=== PATIENT | female | born 1990 | race Hispanic/Latino ===

== ENCOUNTER 2020-01-14 07:02 | Emergency (ER) | payer BC, MEDICAID ==
[2020-01-14] MEDS ORDERED: HALOPERIDOL LACTATE 5 MG/ML VIAL ONE ×2 (07:38)
== END 2020-01-14 09:07 | disposition home or self-care (01) ==
LOC: EDH 07:02
DX: O9A.212 Injury, poisoning and certain other consequences of external causes complicating pregnancy, second trimester (principal); S93.401A Sprain of unspecified ligament of right ankle, initial encounter; R10.30 Lower abdominal pain, unspecified; Z3A.19 19 weeks gestation of pregnancy; W10.8XXA Fall (on) (from) other stairs and steps, initial encounter; Y93.89 Activity, other specified; Y92.89 Other specified places as the place of occurrence of the external cause; Y99.8 Other external cause status
CPT/HCPCS: 73610; 76805; 99284; J1630 ×2

== ENCOUNTER 2020-02-25 02:13 | Observation (INO) | payer BC, MEDICAID ==
[~2020-02-25] VITALS: Ht 149.9 cm; Wt 79.8 kg
[2020-02-25 02:55] VITALS: BP 118/71
[2020-02-25 03:43] LABS: APPEARANCE,URINE Cloudy (CLEAR); BILIRUBIN,URINE Negative (NEGATIVE); COLOR,URINE Yellow (YELLOW); GLUCOSE, URINE (UA) Negative (NEGATIVE); KETONES,URINE 40 mg/dL (NEGATIVE); LEUKOCYTE ESTERASE ,URINE Small (NEGATIVE); NITRATE,URINE Negative (NEGATIVE); OCCULT BLOOD,URINE Negative (NEGATIVE); PH,URINE 5.5 (5.0-8.0); PROTEIN,URINE Trace mg/dL (NEGATIVE); UROBILINOGEN,URINE 0.2 mg/dL (0.2-1.0)
[2020-02-25] MEDS ORDERED: LACTATED RINGERS 1000ML IV PRN (03:45)
[2020-02-25 03:58] LABS: RBC,URINE 0-1 /HPF (0-1)
[2020-02-25 03:59] LABS: BACTERIA,URINE Moderate /HPF (None Seen)
[2020-02-25 04:17] LABS: INR 0.88 (0.85-1.15); PARTIAL THROMBOPLASTIN TIME 24.9 SEC (26.3-35.5); PROTHROMBIN TIME 9.6 SEC (9.6-11.6)
== END 2020-02-25 07:55 | disposition home or self-care (01) ==
LOC: EDH 02:13 → LDH 02:14
PROVIDERS: ADMIT Specialist; ATTEND Specialist
DX: O9A.212 Injury, poisoning and certain other consequences of external causes complicating pregnancy, second trimester (principal); S30.1XXA Contusion of abdominal wall, initial encounter; Z90.49 Acquired absence of other specified parts of digestive tract; Z3A.26 26 weeks gestation of pregnancy; X58.XXXA Exposure to other specified factors, initial encounter; Y93.89 Activity, other specified; Y92.89 Other specified places as the place of occurrence of the external cause
CPT/HCPCS: 36415; 59025; 76819; 81001; 85384; 85610; 85730; 86850; 86900; 86901; 87088; 96360; 96361; 99284; G0378 ×5

== ENCOUNTER 2020-03-21 20:15 | Observation (INO) | payer MEDICAID ==
[~2020-03-21] VITALS: Ht 149.9 cm; Wt 83.9 kg
[2020-03-21] MEDS ORDERED: LACTATED RINGERS 1000ML IV PRN (20:45)
[2020-03-21 21:15] LABS: APPEARANCE,URINE Error (CLEAR); BILIRUBIN,URINE Negative (NEGATIVE); COLOR,URINE Yellow (YELLOW); GLUCOSE, URINE (UA) Negative (NEGATIVE); KETONES,URINE Negative (NEGATIVE); LEUKOCYTE ESTERASE ,URINE Moderate (NEGATIVE); NITRATE,URINE Negative (NEGATIVE); OCCULT BLOOD,URINE Negative (NEGATIVE); PROTEIN,URINE Trace mg/dL (NEGATIVE)
[2020-03-21 21:24] VITALS: BP 108/63
[2020-03-21 21:29] LABS: BACTERIA,URINE Moderate /HPF (None Seen); MUCUS,URINE Few LPF (None Seen); RBC,URINE 0-1 /HPF (0-1); SQUAMOUS EPITHELIAL CELL,UR Few /HPF (0-2)
[2020-03-21 21:49] LABS: AMPHET/METH SCREEN,URINE NEGATIVE (NEGATIVE); BARBITURATE SCREEN, URINE NEGATIVE (NEGATIVE); BENZODIAZEPINES SCREEN,URINE NEGATIVE (NEGATIVE); CANNABINOID SCREEN,URINE NEGATIVE (NEGATIVE); COCAINE SCREEN,URINE NEGATIVE (NEGATIVE); OPIATE SCREEN,URINE NEGATIVE (NEGATIVE); PHENCYCLIDINE SCREEN,URINE NEGATIVE (NEGATIVE)
[2020-03-21] MEDS ORDERED: PREN1TAB29 PO (22:09)
[2020-03-21] MEDS ORDERED: ACET-2743 PO (22:11)
[2020-03-21] MEDS ORDERED: TERBUTALINE SULFATE VIAL 1MG/ML SQ ONE (22:13)
[2020-03-21] MEDS ORDERED: TERBUTALINE SULFATE VIAL 1MG/ML SQ SCH (22:15)
[2020-03-21] MEDS ORDERED: LACTATED RINGERS 1000ML 1,000 ML IV SCH (22:15)
== END 2020-03-22 01:10 | disposition home or self-care (01) ==
LOC: EDH 20:15 → LDH 20:40
PROVIDERS: ADMIT Specialist; ATTEND Specialist
DX: O62.9 Abnormality of forces of labor, unspecified (principal); Z20.828 Contact with and (suspected) exposure to other viral communicable diseases; O26.893 Other specified pregnancy related conditions, third trimester; R50.9 Fever, unspecified; O99.891 Other specified diseases and conditions complicating pregnancy; M79.7 Fibromyalgia; Z90.49 Acquired absence of other specified parts of digestive tract; Z3A.29 29 weeks gestation of pregnancy
CPT/HCPCS: 59025; 80305; 81001; 87088; 87426; 96360; 96361 ×2; 96372; 99284; G0378 ×4; J3105; J7120 ×3; U0003

== ENCOUNTER 2020-05-25 04:31 | Inpatient (IN) | payer MEDICAID ==
[~2020-05-25] VITALS: Ht 149.9 cm; Wt 93.9 kg
[~2020-05-25 04:31] MED LIST: ACET-2743 PO; PREN1TAB29 PO
[2020-05-25] MEDS ORDERED: CEFAZOLIN SODIUM 1 GM VIAL IVP PRN (04:45)
[2020-05-25] MEDS ORDERED: LACTATED RINGERS 1000ML 1,000 ML IV ONE (05:43)
[2020-05-25] MEDS ORDERED: BUTORPHANOL TARTRATE 2 MG/ML ONE (05:44)
[2020-05-25] MEDS ORDERED: TERBUTALINE SULFATE VIAL 1MG/ML SQ ONE (05:44)
[2020-05-25] MEDS ORDERED: LACTATED RINGERS 1000ML 1,000 ML IV SCH (05:45)
[2020-05-25] MEDS ORDERED: TERBUTALINE SULFATE VIAL 1MG/ML SQ SCH (05:45)
[2020-05-25] MEDS ORDERED: BUTORPHANOL TARTRATE 2 MG/ML IVP PRN (05:45)
[2020-05-25 05:47] LABS: HEMATOCRIT 32.6 % (36-48); MEAN CORPUSCULAR HGB CONC 31.3 g/dL (32.0-36.0); MEAN CORPUSCULAR VOLUME 83.2 fL (79-99); RED BLOOD CELL COUNT(AUTO) 3.92 MIL/uL (4.00-5.50); RED CELL DISTRIBUTION WIDTH 15.8 % (11.0-15.5); WHITE BLOOD COUNT (AUTO) 12.6 K/uL (4.8-10.8)
[2020-05-25 07:10] VITALS: BP 116/88
[2020-05-25 07:49] LABS: RAPID PLASMA REAGIN REACTIVE (NONREACTIVE); RAPID PLASMA REAGIN TITER REACTIVE 1:2 (NONREACTIVE)
[2020-05-25] MEDS ORDERED: MORPHINE PF 100MG/10ML AMP IV ONE (08:19)
[2020-05-25] MEDS ORDERED: CEFAZOLIN SODIUM 1 GM VIAL IVP ONE (08:24)
[2020-05-25] MEDS ORDERED: OXYTOCIN 10 UNIT/1ML 10ML VIAL ONE (08:35)
[2020-05-25] MEDS ORDERED: DEXAMETHASONE SOD PHOSPHATE 10MG/ML 1ML VIAL ONE (08:35)
[2020-05-25] MEDS ORDERED: PHENYLEPHRINE HCL 10 MG/ML 1ML VIAL IV ONE (08:35)
[2020-05-25] MEDS ORDERED: MEPERIDINE-PF 75 MG/ML SYG IM PRN (09:15)
[2020-05-25] MEDS ORDERED: OXYTOCIN-LR 20 UNITS/1000 ML 1,000 ML IV PRN (09:15)
[2020-05-25] MEDS ORDERED: 0.9%NACL 10ML VIAL IVP PRN (09:15)
[2020-05-25] MEDS ORDERED: PROMETHAZINE HCL 25 MG/ML 1ML AMPULE IM PRN ×2 (09:15→09:45)
[2020-05-25] MEDS ORDERED: KETOROLAC 30MG VIAL (30MG/ML) IVP PRN (09:45)
[2020-05-25] MEDS ORDERED: RACEPINEPHRINE HCL 2.25% 0.5 ML NEB SOLN NEB PRN (09:45)
[2020-05-25] MEDS ORDERED: MORPHINE 5 MG/ML VIAL (5MG OR GREATER DOSE) IVP PRN (09:45)
[2020-05-25] MEDS ORDERED: ONDANSETRON 4MG INJ IVP PRN (09:45)
[2020-05-25] MEDS ORDERED: NALOXONE HCL 0.4 MG/1 ML ML IVP PRN (09:45)
[2020-05-25] MEDS ORDERED: METOCLOPRAMIDE 10 MG/2 ML VIAL IVP PRN (09:45)
[2020-05-25] MEDS ORDERED: FENTANYL CITRATE PF 50 MCG/1 ML 2ML VIAL IVP PRN (09:45)
[2020-05-25] MEDS ORDERED: MEPERIDINE-PF 25 MG/ML SYG IVP PRN (09:45)
[2020-05-25] MEDS ORDERED: IPRATROPIUM/ALBUTEROL SULFATE 3 ML SOLUTION IH PRN (09:45)
[2020-05-25] MEDS: ACETAMINOPHEN WITH CODEINE 1 TAB TAB PO PRN ×2 (11:23→20:09)
[2020-05-25 12:12] VITALS: BP 123/76
[2020-05-25] MEDS ORDERED: MEPERIDINE-PF 50 MG/ML SYG ONE (13:01)
[2020-05-25] MEDS: DEXTROSE 5 %-0.45 % NACL 1,000 ML IV PRN ×2 (16:04→22:42)
[2020-05-25 16:05] VITALS: BP 112/79
[2020-05-25 20:01] VITALS: BP 102/58
[2020-05-26 00:20] VITALS: BP 113/65
[2020-05-26 03:53] VITALS: BP 95/46
[2020-05-26] MEDS: ACETAMINOPHEN WITH CODEINE 1 TAB TAB PO PRN ×3 (05:58→16:34)
[2020-05-26] MEDS: DEXTROSE 5 %-0.45 % NACL 1,000 ML IV PRN (05:58)
[2020-05-26 06:27] LABS: HEMATOCRIT 24.4 % (36-48); MEAN CORPUSCULAR HEMOGLOBIN 26.7 pg (27.0-33.0); MEAN CORPUSCULAR HGB CONC 31.1 g/dL (32.0-36.0); MEAN CORPUSCULAR VOLUME 85.6 fL (79-99); RED BLOOD CELL COUNT(AUTO) 2.85 MIL/uL (4.00-5.50); RED CELL DISTRIBUTION WIDTH 16.3 % (11.0-15.5); WHITE BLOOD COUNT (AUTO) 15.1 K/uL (4.8-10.8)
[2020-05-26] MEDS ORDERED: ACETAMINOPHEN 500 MG TABLET PO PRN (07:00)
[2020-05-26] MEDS ORDERED: LANOLIN 30GM OINTMENT TP PRN (07:00)
[2020-05-26] MEDS ORDERED: BISACODYL 10 MG SUPP.RECT RC PRN (07:00)
[2020-05-26] MEDS ORDERED: IBUPROFEN 600 MG TABLET ONE (07:00)
[2020-05-26 07:13] LABS: HEPATITIS Bs ANTIGEN SCREEN P Negative (Negative)
[2020-05-26 08:28] VITALS: BP 99/49
[2020-05-26] MEDS: SIMETHICONE 80 MG TAB.CHEW PO PRN ×2 (09:49→21:34)
[2020-05-26] MEDS: DOCUSATE SODIUM 100 MG CAP PO SCH ×2 (09:49→21:33)
[2020-05-26 11:12] VITALS: BP 93/56
[2020-05-26] MEDS: IBUPROFEN 600 MG TABLET PO PRN ×2 (14:05→21:34)
[2020-05-26 16:40] VITALS: BP 108/63
[2020-05-26 19:41] VITALS: BP 103/56
[2020-05-26] MEDS: HYDROCODONE/ACETAMINOPHEN 5/325 MG TAB PO PRN (22:07)
[2020-05-27] VITALS: BP 111/66
[2020-05-27] MEDS: HYDROCODONE/ACETAMINOPHEN 5/325 MG TAB PO PRN (03:40)
[2020-05-27 03:54] VITALS: BP 115/85
[2020-05-27] MEDS: IBUPROFEN 600 MG TABLET PO PRN (04:28)
[2020-05-27 07:20] VITALS: BP 111/70
[2020-05-27] MEDS: SIMETHICONE 80 MG TAB.CHEW PO PRN (09:05)
[2020-05-27] MEDS: DOCUSATE SODIUM 100 MG CAP PO SCH (09:05)
[2020-05-27] MEDS: ACETAMINOPHEN WITH CODEINE 1 TAB TAB PO PRN (09:07)
== END 2020-05-27 11:45 | disposition home or self-care (01) | DRG 540 ==
LOC: EDH 04:31 → LDH 04:32 → OBSVTOIN 04:32 → WSH 12:10
PROVIDERS: ADMIT Specialist; ATTEND Specialist
PROC: 10D00Z1 Extraction of Products of Conception, Low, Open Approach (ICD-10-PCS; principal; 2020-05-25 08:00)
DX: O36.63X0 Maternal care for excessive fetal growth, third trimester, not applicable or unspecified (principal); O34.43 Maternal care for other abnormalities of cervix, third trimester; O69.81X0 Labor and delivery complicated by cord around neck, without compression, not applicable or unspecified; Z3A.39 39 weeks gestation of pregnancy; Z37.0 Single live birth; Z90.49 Acquired absence of other specified parts of digestive tract
CPT/HCPCS: 36415; 59510; 85027; 86592; 86780; 86850; 86900; 86901; 87340; A4344; G0378; J0595; J0690; J1100; J1885; J2175; J2274; J2370; J2405; J2550; J2590; J3105; J7120